=== PATIENT | female | born 1995 | race African-American/Black ===

== ENCOUNTER 2023-02-19 21:33 | Emergency (ER) | payer OTHER ==
[~2023-02-19] VITALS: Ht 162.6 cm; Wt 53.0 kg
[2023-02-19 21:39] VITALS: BP 119/96; PULSE 109; RESP 20; O2SAT 99
[2023-02-19 23:16] LABS: HEMATOCRIT. 42.6 % (36.0-48.0); HEMOGLOBIN. 14.1 g/dL (12.0-16.0); MEAN CORPUSCULAR VOLUME 84.7 fL (81.0-99.0); PLATELET 353 x1000/uL (130-400); RED BLOOD CELL COUNT 5.03 mill/uL (4.2-5.4); RED CELL DISTRIBUTION WIDTH 14.4 % (11.6-14.6)
[2023-02-19 23:19] LABS: CHLORIDE 110 mEq/L (98-107)
[2023-02-19 23:20] LABS: CLARITY URINE CLEAR (CLEAR); COLOR URINE DARK YELLOW (YELLOW); KETONES URINE 1+ (NEGATIVE); LEUKOCYTE ESTERASE URINE 1+ (NEGATIVE); NITRITE URINE NEGATIVE (NEGATIVE); OCCULT BLOOD URINE NEGATIVE (NEGATIVE); PROTEIN URINE TRACE (NEGATIVE); SPECIFIC GRAVITY URINE 1.033 (1.005-1.030); UROBILINOGEN URINE 0.2 E.U./dL (0.2-1.0)
[2023-02-19 23:24] LABS: HCG SCREEN NEGATIVE
[2023-02-19 23:27] LABS: BETA HYDROXYBUTYRATE 0.7 mMol/L (0.0-0.3); ETHANOL BLOOD < 10 mg/dL (-10)
[2023-02-19 23:39] LABS: *BARBITURATES SCREEN URINE NEGATIVE (NEGATIVE); *BENZODIAZEPINES SCREEN URINE NEGATIVE (NEGATIVE); *COCAINE SCREEN URINE NEGATIVE (NEGATIVE); CANNABINOID URINE SCREEN NEGATIVE (NEGATIVE); METHADONE URINE SCREEN NEGATIVE (NEGATIVE); OPIATES URINE SCREEN NEGATIVE (NEGATIVE); PHENCYCLIDINE URINE SCREEN NEGATIVE (NEGATIVE)
[2023-02-19 23:45] LABS: PLATELET ESTIMATE NORMAL
[2023-02-20] LABS: *AMPHETAMINES SCREEN URINE PRESUMTIVE POSITIVE (NEGATIVE)
== END 2023-02-20 00:47 | disposition home or self-care (01) ==
LOC: ER 21:33
DX: R10.9 Unspecified abdominal pain (principal)
CPT/HCPCS: 36415; 80053; 80305; 80320; 81003; 81025; 82010; 84703; 85025; 99283; G0480